=== PATIENT | female | born 1980 | race Caucasian/White ===

== ENCOUNTER 2017-04-22 17:37 | Emergency (ER) | payer MEDICAID ==
--- NOTE | 2017-04-22 17:50 | ED PDOC ---
Arrival/HPI - General Historian: Patient - General Time Seen by Provider: 04/22/17 17:44 - History of Present Illness Narrative History of Present Illness (Text): 04/22/17 17:49 37 y/o female, no significant pmh, nkda, last tetanus over 10 years ago, c/o lt. foot dog bite x 1 hour. Pt. was accidentally bite by the neighbor's dog, dog has all the immunization up to date including rabies as per patient, no numbness or tingling, no difficulty moving the lt. foot, no fever or chills. ( Yonas Angela) Past Medical History - Provider Review Nursing Documentation Reviewed: Yes - Past History Past History: No Previous - Integumentary Hx Dermatological Disorder: Yes Other/Comment: right axillary mass - Past Surgical History Past Surgical History: No Previous - Anesthesia Hx Anesthesia: No Hx Anesthesia Reactions: No Hx Malignant Hyperthermia: No Family/Social History - Physician Review Nursing Documentation Reviewed: Yes Family/Social History: Unknown Family HX Smoking Status: Never Smoked Hx Alcohol Use: No Hx Substance Use Treatment: No Allergies/Home Meds Allergies/Adverse Reactions: Allergies No Known Allergies Allergy (Verified 04/22/17 17:57) Review of Systems - Review of Systems Constitutional: absent: Fatigue, Fevers Eyes: absent: Vision Changes ENT: absent: Hearing Changes Respiratory: absent: SOB, Cough Cardiovascular: absent: Chest Pain Gastrointestinal: absent: Abdominal Pain, Diarrhea, Nausea, Vomiting Skin: absent: Rash, Pruritis, Skin Lesions Neurological: absent: Headache, Dizziness Physical Exam Vital Signs Reviewed: Yes Temperature: Afebrile Blood Pressure: Normal Pulse: Regular Respiratory Rate: Normal Appearance: Positive for: Well-Appearing, Non-Toxic, Comfortable Pain Distress: Mild Mental Status: Positive for: Alert and Oriented X 3 - Systems Exam Head: Present: Atraumatic, Normocephalic Pupils: Present: PERRL Extroacular Muscles: Present: EOMI Conjunctiva: Present: Normal Mouth: Present: Moist Mucous Membranes Neck: Present: Normal Range of Motion Respiratory/Chest: Present: Clear to Auscultation, Good Air Exchange. No: Respiratory Distress, Accessory Muscle Use Cardiovascular: Present: Regular Rate and Rhythm, Normal S1, S2. No: Murmurs Abdomen: Present: Normal Bowel Sounds. No: Tenderness, Distention, Peritoneal Signs Back: Present: Normal Inspection Upper Extremity: Present: Normal Inspection. No: Cyanosis, Edema Lower Extremity: Present: Normal Inspection. No: Edema Neurological: Present: GCS=15, Speech Normal, Motor Func Grossly Intact, Gait Normal, Memory Normal Skin: Present: Warm, Dry, Rashes (lt. foot: visible superficial abrasion approx. 0.1cm diameter on each bite wound with no puncture or laceration gap wound, no bony tenderness or deformity, FROM without limitation, sensation intact, motor 5/5, +DPPT pulses, capillary refill< 2 seconds, neurovascular intact. ), Normal Color Psychiatric: Present: Alert, Oriented x 3, Normal Insight, Normal Concentration Medical Decision Making ED Course and Treatment: 04/22/17 17:59 -tdap -irrigated with saline and clean with betadine, gauze dressing. -Discharge home with augmentin, bacitracin ointment, clean with soap and water twice daily, follow up with your own pmd and online marketing strategist within 2 days, return to the ER for any new or worsening signs or symptoms. (Yonas Angela) I was available for consultation during PA evaluation. The chart was reviewed by me, and I agree with disposition. The documented history was done by the physician scallop binder. The documented physical exam was done by the physician scallop binder. The documented procedures were done by the physician scallop binder. (Ancelmo Cho) - Medication Orders Current Medication Orders: Discontinued Medications Tetanus/Reduced Diphtheria/Acell Pertussis (Boostrix Vaccine Inj) 0.5 ml IM .ONCE ONE Stop: 04/22/17 18:00 - PA / COLD STRIP ROLLER / Resident Statement MD/DO has reviewed & agrees with the documentation as recorded. Disposition/Present on Arrival - Present on Arrival Any Indicators Present on Arrival: No History of DVT/PE: No History of Uncontrolled Diabetes: No Urinary Catheter: No History of Decub. Ulcer: No - Disposition Have Diagnosis and Disposition been Completed?: Yes Disposition Time: 18:22 Patient Plan: Discharge - Disposition Diagnosis: Dog bite, Foot abrasion Disposition: HOME/ ROUTINE Additional Instructions: -Discharge home with augmentin, bacitracin ointment, clean with soap and water twice daily, follow up with your own pmd and online marketing strategist within 2 days, return to the ER for any new or worsening signs or symptoms. Prescriptions: Amoxicillin/Clavulanate [Augmentin 875 MG-125 MG] 1 tab PO BID #14 tab Bacitracin Ointment [Bacitracin] 1 appful TOP BID #15 g Referrals: Clifford Hyatt DPM [Staff Provider] - Follow up with primary [facility] at [facility] [Outside] - Follow up with primary Forms: WORK NOTE
[2017-04-22 17:57] VITALS: TEMP 98.7; O2SAT 100; BMI 30.9
[2017-04-22] MEDS ORDERED: TDAP Vaccine 0.5 mL Syr IM ONE (17:59)
[2017-04-22 19:22] VITALS: BP 112/69; PULSE 82; RESP 16
== END 2017-04-22 19:24 | disposition home or self-care (01) ==
LOC: ED 17:37
DX: S90.812A Abrasion, left foot, initial encounter (principal); W54.0XXA Bitten by dog, initial encounter; Z23 Encounter for immunization

== ENCOUNTER 2017-11-28 11:07 | Day surgery (SDC) | payer MEDICAID ==
[2017-11-28] MEDS ORDERED: Propofol 10 mg/ml Inj (20 ML) ONE (13:09)
[2017-11-28] MEDS ORDERED: Lidocaine 2% Inj (20ml) ONE (13:10)
[2017-11-28 13:30] VITALS: TEMP 98
[2017-11-28] MEDS ORDERED: Sodium Chloride 0.9% 1,000 ML IV SCH (13:30)
[2017-11-28 14:03] VITALS: BP 118/74; PULSE 64; RESP 16; O2SAT 100
== END 2017-11-28 14:35 | disposition home or self-care (01) ==
LOC: ENDO 11:07
PROVIDERS: ATTEND Internal Medicine
DX: K29.50 Unspecified chronic gastritis without bleeding (principal); B96.81 Helicobacter pylori [H. pylori] as the cause of diseases classified elsewhere; R10.13 Epigastric pain
CPT/HCPCS: 43239; 84703; 88305; 88342; J2704; J7040 ×2

== ENCOUNTER 2018-07-18 21:09 | Emergency (ER) | payer MEDICAID ==
[2018-07-18 21:38] VITALS: BMI 29.9
[2018-07-18 21:46] VITALS: RESP 18; TEMP 98.2
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
[2018-07-18] MEDS ORDERED: TDAP Vaccine 0.5 mL Syr IM ONE (21:58)
[2018-07-19 00:40] VITALS: BP 120/65; PULSE 79; O2SAT 100
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
== END 2018-07-19 00:29 | disposition home or self-care (01) ==
LOC: ED 21:09
DX: T14.8XXA Other injury of unspecified body region, initial encounter (principal); Y04.0XXA Assault by unarmed brawl or fight, initial encounter; Y92.511 Restaurant or cafe as the place of occurrence of the external cause

== ENCOUNTER 2019-01-07 11:23 | Outpatient (CLI) | payer MEDICAID | END 2019-01-07 11:24 | disposition home or self-care (01) | LOC: RAD 11:23 ==